=== PATIENT | female | born 1985 | race Caucasian/White ===

== ENCOUNTER 2018-05-16 12:40 | Inpatient (IN) | payer MEDICAID ==
[2018-05-16] MEDS ORDERED: LACTATED RINGER'S 1,000 ML IV (13:05)
[2018-05-16] MEDS ORDERED: BUTORPHANOL 2 MG INJ IV (13:30)
[2018-05-16] MEDS ORDERED: LIDOCAINE 1% (MPF) 30 ML INJ INJ (13:30)
[2018-05-16] MEDS ORDERED: CARBOPROST 250 MCG INJ IM (13:30)
[2018-05-16] MEDS ORDERED: DEXTROSE 5%-LR 1,000 ML IV (13:30)
[2018-05-16] MEDS ORDERED: OXYTOCIN 30 UNITS/LR 500 ML IV ×2 (13:30)
[2018-05-16] MEDS ORDERED: MISOPROSTOL 200 MCG TAB PR (13:30)
[2018-05-16] MEDS ORDERED: METHYLERGONOVINE 0.2 MG INJ IM (13:30)
[2018-05-16 13:39] LABS: ADD MAN DIFF? NO
[2018-05-16 13:42] LABS: WHITE BLOOD COUNT 7.4 10^3/ul (4.8-10.8)
[2018-05-16 13:42] LABS: BASOPHILS % 0.3 % (0.0-2.0); HEMATOCRIT 33.3 % (37.0-47.0); HEMOGLOBIN 11.7 g/dl (12.0-16.0); LYMPHOCYTES % 13.1 % (15.0-51.0); MEAN CORPUSCULAR HGB CONC 35.1 g/dl (32.0-37.0); MEAN CORPUSCULAR VOLUME 93.8 fl (82.0-101.0); MONOCYTE # 0.2 10^3/ul (0.3-0.9); MONOCYTES % 3.2 % (0.0-11.0); NEUTROPHIL # 6.1 10^3/ul (1.6-7.5); NEUTROPHILS % 82.3 % (39.0-77.0); PLATELET COUNT 180 10^3/UL (140-415); RED BLOOD COUNT 3.55 10^6/ul (4.20-5.40); RED CELL DISTRIBUTION WIDTH 12.5 % (11.5-14.5)
[2018-05-16] MEDS: AMPICILLIN 2 GM/NS (PMX) 100 ML IV (13:49)
[2018-05-16] MEDS: DEXTROSE 5%-LR 1,000 ML IV (13:50)
[2018-05-16 14:04] LABS: INR 0.94; PARTIAL THROMBOPLASTIN TIME 29.2 Sec (25.0-35.0); PROTIME 12.7 Sec (11.9-14.9)
[2018-05-16 14:50] LABS: HEPATITIS B SURFACE ANTIGEN NEGATIVE (NEGATIVE)
[2018-05-16] MEDS: LACTATED RINGER'S 1,000 ML IV ×3 (15:11→19:08)
[2018-05-16] MEDS ORDERED: FENTAnyl 2MCG/ML-ROPIV 0.2% 100 ML (16:01)
[2018-05-16] MEDS: AMPICILLIN 1 GM/NS (PMX) 50 ML IV ×2 (17:31→21:44)
[2018-05-16] MEDS ORDERED: IBUPROFEN 600 MG TAB PO (20:00)
[2018-05-16 20:01] LABS: RAPID PLASMA REAGIN NONREACTIVE (NR)
[2018-05-16] MEDS ORDERED: NALOXONE (0.4 MG/ML) INJ IV (21:00)
[2018-05-16] MEDS ORDERED: DIPHENHYDRAMINE 50 MG INJ IV (21:00)
[2018-05-16] MEDS ORDERED: ONDANSETRON 4 MG INJ IV (21:00)
[2018-05-16 21:02] LABS: HIV 1&2 ANTIBODY NEGATIVE (NEGATIVE)
[2018-05-16] MEDS: FENTAnyl 2MCG/ML-ROPIV 0.2% 100 ML BAG EPI (21:46)
[2018-05-16] MEDS: OXYTOCIN 30 UNITS/LR 500 ML IV ×2 (22:43→23:01)
[2018-05-17] MEDS ORDERED: METHYLERGONOVINE 0.2 MG INJ IM (01:00)
[2018-05-17] MEDS ORDERED: MISOPROSTOL 200 MCG TAB PR (01:00)
[2018-05-17] MEDS ORDERED: ZOLPIDEM 5 MG TAB PO (01:00)
[2018-05-17] MEDS ORDERED: OXYCODONE/ASPIRIN (4.88/325) TAB PO ×2 (01:00)
[2018-05-17] MEDS ORDERED: CARBOPROST 250 MCG INJ IM (01:00)
[2018-05-17] MEDS ORDERED: OXYTOCIN 30 UNITS/LR 500 ML IV (01:00)
[2018-05-17] MEDS: LANOLIN 7 GM TUBE TOP (01:54)
[2018-05-17] MEDS: WITCH HAZEL/GLYCERIN PAD PR (01:54)
[2018-05-17] MEDS: BENZOCAINE 20% 56 ML SPRAY TOP (01:54)
[2018-05-17] MEDS: IBUPROFEN 600 MG TAB PO ×3 (05:34→18:05)
[2018-05-17 07:20] LABS: ADD MAN DIFF? NO
[2018-05-17 07:25] LABS: BASOPHIL # 0.1 10^3/ul (0.0-0.1); BASOPHILS % 0.4 % (0.0-2.0); EOSINOPHILS # 0.2 10^3/ul (0.0-0.5); HEMATOCRIT 28.7 % (37.0-47.0); HEMOGLOBIN 9.8 g/dl (12.0-16.0); LYMPHOCYTES # 2.6 10^3/ul (0.8-2.9); LYMPHOCYTES % 17.8 % (15.0-51.0); MEAN CORPUSCULAR HEMOGLOBIN 32.2 pg (29.0-33.0); MEAN CORPUSCULAR HGB CONC 34.1 g/dl (32.0-37.0); MEAN CORPUSCULAR VOLUME 94.4 fl (82.0-101.0); MEAN PLATELET VOLUME 9.4 fl (7.4-10.4); MONOCYTE # 1.2 10^3/ul (0.3-0.9); MONOCYTES % 7.8 % (0.0-11.0); NEUTROPHIL # 10.6 10^3/ul (1.6-7.5); NEUTROPHILS % 72.2 % (39.0-77.0); PLATELET COUNT 166 10^3/UL (140-415); RED BLOOD COUNT 3.04 10^6/ul (4.20-5.40); RED CELL DISTRIBUTION WIDTH 12.8 % (11.5-14.5)
[2018-05-17 07:25] LABS: WHITE BLOOD COUNT 14.8 10^3/ul (4.8-10.8)
[2018-05-17] MEDS: SENNA/DOCUSATE NA (8.6MG/50MG) TAB PO ×2 (09:20→22:04)
[2018-05-18] MEDS: IBUPROFEN 600 MG TAB PO ×4 (05:56→17:41)
[2018-05-18] MEDS: SENNA/DOCUSATE NA (8.6MG/50MG) TAB PO (08:41)
[2018-05-18] MEDS: DIPHTH/TET/ACEL PERTUSS (ADULT) 0.5 ML VIAL IM* (08:42)
[2018-05-18 12:41] LABS: RUBELLA ANTIBODY - IGM <20.00 AU/mL
== END 2018-05-18 19:24 | disposition home or self-care (01) | DRG 775 ==
LOC: OBT 12:40 → PP1 05-17 00:25 → L-D 12:40 → OBT 13:14 → L-D 13:00
PROVIDERS: Obstetrics & Gynecology
PROC: 10E0XZZ Delivery of Products of Conception, External Approach (ICD-10-PCS; principal; 2018-05-16)
PROC: 0HQ9XZZ Repair Perineum Skin, External Approach (ICD-10-PCS; 2018-05-16)
PROC: 3E033VJ Introduction of Other Hormone into Peripheral Vein, Percutaneous Approach (ICD-10-PCS; 2018-05-16)
DX: O69.81X0 Labor and delivery complicated by cord around neck, without compression, not applicable or unspecified (principal); O70.0 First degree perineal laceration during delivery; Z3A.39 39 weeks gestation of pregnancy; Z37.0 Single live birth
CPT/HCPCS: 62319; 85025; 85610; 85730; 86592; 86703; 86762; 86850; 86900; 86901; 87340; 99464